=== PATIENT | female | born 1990 | race Hispanic/Latino ===

== ENCOUNTER 2017-09-16 10:15 | Observation (INO) | payer MEDICAID, OTHER ==
[2017-09-16] MEDS ORDERED: LACTATED RINGERS 1000ML 1,000 ML IV SCH (11:45)
[2017-09-16 11:52] LABS: APPEARANCE,URINE Clear (CLEAR); BILIRUBIN,URINE Negative (NEGATIVE); COLOR,URINE Yellow (YELLOW); GLUCOSE, URINE (UA) Negative (NEGATIVE); KETONES,URINE >=80 mg/dL (NEGATIVE); LEUKOCYTE ESTERASE ,URINE Trace (NEGATIVE); NITRATE,URINE Negative (NEGATIVE); OCCULT BLOOD,URINE Negative (NEGATIVE); PROTEIN,URINE Negative (NEGATIVE)
[2017-09-16 12:11] LABS: BACTERIA,URINE Rare /HPF (None Seen); RBC,URINE 0-1 /HPF (0-1); SQUAMOUS EPITHELIAL CELL,UR Many /HPF (0-2)
== END 2017-09-16 12:43 | disposition home or self-care (01) ==
LOC: LDH 10:15
PROVIDERS: ADMIT Obstetrics & Gynecology; ATTEND Obstetrics & Gynecology
DX: O26.893 Other specified pregnancy related conditions, third trimester (principal); R10.2 Pelvic and perineal pain; Z3A.37 37 weeks gestation of pregnancy
CPT/HCPCS: 81001; G0378 ×3; J7120; 96360

== ENCOUNTER 2017-09-28 05:37 | Inpatient (IN) | payer MEDICAID, OTHER ==
[2017-09-26 11:11] LABS: HEMATOCRIT 34.3 % (36-48); MEAN CORPUSCULAR HEMOGLOBIN 31.2 pg (27.0-33.0); MEAN CORPUSCULAR HGB CONC 34.5 g/dL (32.0-36.0); MEAN CORPUSCULAR VOLUME 90.2 fL (79-99); PLATELET COUNT (AUTO) 114 K/uL (130-400); RED CELL DISTRIBUTION WIDTH 13.7 % (11.0-15.5); WHITE BLOOD COUNT (AUTO) 7.8 K/uL (4.8-10.8)
[2017-09-27 14:15] LABS: HEPATITIS Bs ANTIGEN SCREEN P Negative (Negative)
[~2017-09-28] VITALS: Ht 165.1 cm; Wt 88.5 kg
[2017-09-28] MEDS ORDERED: CEFAZOLIN SODIUM 1 GM VIAL IVP PRN (06:00)
[2017-09-28] MEDS: LACTATED RINGERS 1000ML 1,000 ML IV SCH (07:42)
[2017-09-28] MEDS ORDERED: DURAMORPH PF1 MG/ML 10ML AMP IV ONE (08:19)
[2017-09-28] MEDS ORDERED: SENSORCAINE/DEXT/PF 0.75% 2ML AMP IJ ONE (08:25)
[2017-09-28] MEDS ORDERED: PROPOFOL 10 MG/ML 20ML VIAL IV ONE (08:35)
[2017-09-28] MEDS ORDERED: FENTANYL CITRATE PF 50 MCG/1 ML 2ML VIAL ONE ×2 (08:41→09:05)
[2017-09-28] MEDS ORDERED: OXYTOCIN-LR 20 UNITS/1000 ML 1,000 ML IV PRN (09:23)
[2017-09-28] MEDS ORDERED: PROMETHAZINE HCL 25 MG/ML 1ML AMPULE IM PRN ×2 (09:30→11:45)
[2017-09-28] MEDS ORDERED: SODIUM CHLORIDE 0.9% 10 ML VIAL IVP PRN (09:30)
[2017-09-28] MEDS ORDERED: MEPERIDINE-PF 75 MG/ML SYG IM PRN (09:30)
[2017-09-28 10:50] VITALS: BP 117/65
[2017-09-28 11:24] VITALS: BP 95/65
[2017-09-28] MEDS ORDERED: ONDANSETRON HCL 4 MG/2 ML VIAL IVP PRN ×2 (11:45)
[2017-09-28] MEDS ORDERED: ONDANSETRON HCL 4 MG/2 ML 8 MG in SODIUM CHLORIDE 0.9% 50 ML IVP NR (11:45)
[2017-09-28] MEDS ORDERED: NALOXONE HCL 0.4 MG/1 ML ML IVP PRN (11:45)
[2017-09-28] MEDS ORDERED: EPHEDRINE SULFATE 50 MG/ML AMPULE IVP PRN (11:45)
[2017-09-28] MEDS ORDERED: METOCLOPRAMIDE 10 MG/2 ML VIAL IVP PRN (11:45)
[2017-09-28] MEDS ORDERED: MORPHINE SULFATE 2 MG/ML 1ML SYG IVP PRN (11:45)
[2017-09-28] MEDS ORDERED: DiphenhydrAMINE HCL 50 MG/ML VIAL IVP PRN (11:45)
[2017-09-28] MEDS ORDERED: HYDROCODONE/ACETAMINOPHEN 5/325 MG TAB PO PRN (11:45)
[2017-09-28] MEDS ORDERED: CALDOLOR 800MG+NS 250ML 250 ML IV ONE ×3 (11:52→11:57)
[2017-09-28] MEDS ORDERED: OXYTOCIN 10 USP UNITS/ML ONE (11:53)
[2017-09-28] MEDS ORDERED: PNV11TAB5 PO (14:27)
[2017-09-28 15:31] VITALS: BP 103/68
[2017-09-28] MEDS ORDERED: CALDOLOR 800MG+NS 250ML 250 ML IV SCH (17:30)
[2017-09-28 19:23] VITALS: BP 95/59
[2017-09-28] MEDS: DEXTROSE 5 %-0.45 % NACL 1,000 ML IV PRN (20:40)
[2017-09-28] MEDS: HYDROCODONE/ACETAMINOPHEN 5/325 MG TAB PO PRN (21:56)
[2017-09-29 00:41] VITALS: BP 98/60
[2017-09-29] MEDS: DEXTROSE 5 %-0.45 % NACL 1,000 ML IV PRN (03:23)
[2017-09-29] MEDS ORDERED: CALDOLOR 800MG+NS 250ML 250 ML IV ONE (03:58)
[2017-09-29] MEDS: HYDROCODONE/ACETAMINOPHEN 5/325 MG TAB PO PRN (04:13)
[2017-09-29 04:37] VITALS: BP 92/59
[2017-09-29 06:49] LABS: MEAN CORPUSCULAR HGB CONC 35.3 g/dL (32.0-36.0); MEAN CORPUSCULAR VOLUME 90.8 fL (79-99); PLATELET COUNT (AUTO) 94 K/uL (130-400); RED BLOOD CELL COUNT(AUTO) 3.08 MIL/uL (4.00-5.50); RED CELL DISTRIBUTION WIDTH 13.7 % (11.0-15.5); WHITE BLOOD COUNT (AUTO) 10.8 K/uL (4.8-10.8)
[2017-09-29 07:45] VITALS: BP 96/56
[2017-09-29] MEDS ORDERED: DIPH,PERTUSS(ACELL),TET VAC/PF 0.5 ML VIAL IM SCH (08:30)
[2017-09-29] MEDS ORDERED: BISACODYL 10 MG SUPP.RECT RC PRN (08:30)
[2017-09-29] MEDS: SIMETHICONE 80 MG TAB.CHEW PO PRN ×2 (09:03→20:33)
[2017-09-29] MEDS: DOCUSATE SODIUM 100 MG CAP PO SCH ×2 (09:03→20:33)
[2017-09-29] MEDS: IBUPROFEN 800 MG TAB PO SCH ×2 (09:04→16:56)
[2017-09-29 11:47] VITALS: BP 110/68
[2017-09-29] MEDS: LACTATED RINGERS 1000ML 1,000 ML IV SCH (14:00)
[2017-09-29] MEDS: ACETAMINOPHEN-CODEINE 300/30MG TAB PO PRN ×2 (14:31→20:34)
[2017-09-29 15:43] VITALS: BP 90/54
[2017-09-29 19:42] VITALS: BP 108/64
[2017-09-30 00:48] VITALS: BP 100/57
[2017-09-30 05:01] VITALS: BP 101/65
[2017-09-30 08:13] VITALS: BP 96/56
[2017-09-30] MEDS: SIMETHICONE 80 MG TAB.CHEW PO PRN (09:14)
[2017-09-30] MEDS: DOCUSATE SODIUM 100 MG CAP PO SCH (09:14)
[2017-09-30] MEDS: IBUPROFEN 800 MG TAB PO SCH ×2 (09:15→09:30)
[2017-09-30 12:04] VITALS: BP 126/76
== END 2017-09-30 12:15 | disposition home or self-care (01) | DRG 766 ==
LOC: LDH 05:37 → WSH 10:50 → EDSTATUS 11:54
PROVIDERS: ADMIT Obstetrics & Gynecology; ATTEND Obstetrics & Gynecology
PROC: 10D00Z1 Extraction of Products of Conception, Low, Open Approach (ICD-10-PCS; principal; 2017-09-28 07:30)
DX: O34.211 Maternal care for low transverse scar from previous cesarean delivery (principal); Z37.0 Single live birth; Z3A.39 39 weeks gestation of pregnancy
CPT/HCPCS: 36415; 59510; 85027; 86592; 86850; 86900; 86901; 87340; 90715; A4344; A4450; A4606; J0690; J1741; J2175; J2274; J2550; J2590; J2704; J3010; J3490; J7120